=== PATIENT | female | born 1995 | race Caucasian/White ===

== ENCOUNTER 2016-12-16 17:21 | Emergency (ER) | payer OTHER ==
[~2016-12-16] VITALS: Ht 157.5 cm; Wt 44.6 kg
[2016-12-16 17:27] VITALS: TEMP 36.8; Ht 157.5 cm; Wt 44.6 kg
[2016-12-16] MEDS ORDERED: AMOX500C3 PO (17:47)
[2016-12-16] MEDS ORDERED: BUPR8SUB19 SL (17:47)
[2016-12-16 18:21] LABS: BASO % 0.3 %; BASO ABS # 0.03 K/uL (0-0.2); COMPLETE YES; EOS % 0.3 %; HEMATOCRIT 41.5 % (37-47); IG% 0.3 %; LYMPH % 17.3 %; LYMPH ABS # 1.68 K/uL (1.2-3.4); MEAN CELL VOLUME 80.1 fL (80-100); MEAN CORPUSCULAR HEMOGLOBIN 24.9 pg (25-34); MEAN CORPUSCULAR HGB CONC 31.1 g/dl (32-36); MEAN PLATELET VOLUME 9.2 fL (7.4-10.4); MONO % 6.3 %; NEUT % 75.5 %; PLATELET COUNT 344 K/uL (130-400); RED BLOOD COUNT 5.18 M/uL (4.2-5.4); WHITE BLOOD COUNT 9.71 K/uL (4.8-10.8)
--- NOTE | 2016-12-16 18:23 | EMERGENCY ROOM VISIT NOTE ---
History First contact with patient: 17:32 Chief Complaint: ED VAG BLEEDING Stated Complaint: ,BLEEDING,CRAMPING History of Present Illness The patient is a 21 year old female who presents to the Emergency Room accompanied by officers from the correctional facility with complaints of vaginal bleeding and cramping. The patient states that she has had vaginal bleeding and lower abdominal cramping for the past one week. She states that she delivered her son 7 months ago and this is the third time she has had bleeding since then. Her last menstrual period prior to this was 2 months ago. She was seen by a provider at the correctional facility and had a positive test. She has had 2 previous pregnancies, one of which went to term and one of which ended in a miscarriage. She has previously been seen by [facility]/ [facility] in [place]. She rates her overall discomfort a 7/10. Review of Systems A complete 10 point review of systems was reviewed with the patient with pertinent positives and negatives as per history of present illness. All else were negative. Social History Smoking Status: Current Every Day Smoker Alcohol Use: none Drug Use: none Housing Status: other (correctional facility) Occupation Status: other (correctional facility) Current/Historical Medications Scheduled Amoxicillin (Amoxil), 500 MG PO TID Buprenorphine Hcl (Subutex), 0.5 TAB SL TID Physical Exam Vital Signs Date Time Temp Pulse Resp B/P (MAP) Pulse Ox O2 Delivery O2 Flow Rate FiO2 12/16/16 21:00 84 18 115/57 95 Room Air 12/16/16 19:09 63 20 102/56 99 Room Air 12/16/16 17:27 36.8 82 18 113/47 98 Room Air Physical Exam VITALS: Vitals are noted on the nurse's note and reviewed by myself. Vital signs stable. GENERAL: This is a 21-year-old female, in no acute distress, nondiaphoretic, well-developed well-nourished. HEART: Regular rate and rhythm without murmurs gallops or rubs. LUNGS: Clear to auscultation bilaterally without wheezes, rales or rhonchi. ABDOMEN: Positive bowel sounds x 4. Soft, mild tenderness to palpation across lower abdomen. No guarding or rebound tenderness. NEURO: Patient was alert and oriented to person place and time. Medical Decision & Procedures ER Provider Diagnostic Interpretation: TRANSVAGINAL, LIMITED (US) CLINICAL HISTORY: 21 years-old Female presenting with vaginal bleeding, positive test, cramping, last menstrual period 2 months ago. TECHNIQUE: Real-time grayscale and M-mode Doppler ultrasound imaging of the pelvis was performed first using a transabdominal probe and subsequently transvaginal for better characterization. COMPARISON: None. FINDINGS: Uterus: No gestational sac visualized. Anteverted and anteflexed uterus, measuring 8.9 x 3.9 x 5.8 cm. Endometrial cavity is heterogeneous and thickened, measuring 14 mm in maximal AP dimension. Cervix long and closed. Right adnexa: Right ovary normal. Right ovary measures 3.3 x 1.7 x 2.7 cm. Normal color Doppler flow and arterial and venous waveforms within the ovarian parenchyma. Left adnexa: Left ovary likely contains a corpus luteum. Left ovary measures 3.3 x 1.6 x 2.7 cm. Normal color Doppler flow and arterial and venous waveforms within the ovarian parenchyma. Other: No free fluid. IMPRESSION: 1. No gestational sac visualized. Correlate with quantitative beta-hCG for early gestation not yet sonographically visible. This qualifies as of unknown location. Heterogeneous and thickened appearance of the endometrial cavity could suggest a decidual reaction versus blood products in the setting of a failed . Close clinical follow-up recommended with tracking of beta-hCG. 2. No evidence of ovarian torsion. Laboratory Results 12/16/16 18:15 Red Blood Count 5.18, Mean Corpuscular Volume 80.1, Mean Corpuscular Hemoglobin 24.9, Mean Corpuscular Hemoglobin Concent 31.1, Mean Platelet Volume 9.2, Neutrophils (%) (Auto) 75.5, Lymphocytes (%) (Auto) 17.3, Monocytes (%) (Auto) 6.3, Eosinophils (%) (Auto) 0.3, Basophils (%) (Auto) 0.3, Neutrophils # (Auto) 7.33, Lymphocytes # (Auto) 1.68, Monocytes # (Auto) 0.61, Eosinophils # (Auto) 0.03, Basophils # (Auto) 0.03 12/16/16 18:15 Test 12/16/16 18:15 White Blood Count 9.71 K/uL (4.8-10.8) Red Blood Count 5.18 M/uL (4.2-5.4) Hemoglobin 12.9 g/dL (12.0-16.0) Hematocrit 41.5 % (37-47) Mean Corpuscular Volume 80.1 fL (80-100) Mean Corpuscular Hemoglobin 24.9 pg (25-34) Mean Corpuscular Hemoglobin Concent 31.1 g/dl (32-36) Platelet Count 344 K/uL (130-400) Mean Platelet Volume 9.2 fL (7.4-10.4) Neutrophils (%) (Auto) 75.5 % Lymphocytes (%) (Auto) 17.3 % Monocytes (%) (Auto) 6.3 % Eosinophils (%) (Auto) 0.3 % Basophils (%) (Auto) 0.3 % Neutrophils # (Auto) 7.33 K/uL (1.4-6.5) Lymphocytes # (Auto) 1.68 K/uL (1.2-3.4) Monocytes # (Auto) 0.61 K/uL (0.11-0.59) Eosinophils # (Auto) 0.03 K/uL (0-0.5) Basophils # (Auto) 0.03 K/uL (0-0.2) RDW Standard Deviation 45.3 fL (36.4-46.3) RDW Coefficient of Variation 15.6 % (11.5-14.5) Immature Granulocyte % (Auto) 0.3 % Immature Granulocyte # (Auto) 0.03 K/uL (0.00-0.02) Prothrombin Time 12.2 SECONDS (9.0-12.0) Prothromb Time International Ratio 1.1 (0.9-1.1) Activated Partial Thromboplast Time 29.6 SECONDS (21.0-31.0) Partial Thromboplastin Ratio 1.1 Anion Gap 4.0 mmol/L (3-11) Est Creatinine Clear Calc Drug Dose 117.2 ml/min Estimated GFR () > 150.0 Estimated GFR (Non- 134.8 BUN/Creatinine Ratio 15.2 (10-20) Calcium Level 8.8 mg/dl (8.5-10.1) Total Bilirubin 0.4 mg/dl (0.2-1) Aspartate Amino Transf (AST/SGOT) 11 U/L (15-37) Alanine Aminotransferase (ALT/SGPT) 13 U/L (12-78) Alkaline Phosphatase 83 U/L (45-117) Total Protein 7.1 gm/dl (6.4-8.2) Albumin 3.6 gm/dl (3.4-5.0) Globulin 3.5 gm/dl (2.5-4.0) Albumin/Globulin Ratio 1.0 (0.9-2) Thyroid Stimulating Hormone (TSH) 0.231 uIu/ml (0.300-4.500) Human Chorionic Gonadotropin, Quant 609 mIU/mL ED Course The patient was evaluated as above. Labs were drawn and IV access was obtained. Pelvic ultrasound was performed and read by radiology as above. Patient was reevaluated and findings were discussed. Case was discussed with the on-call provider from the [facility]. They will arrange for follow-up in 48 hours. Discharge instructions were reviewed with the patient. The patient verbalized understanding of my assessment and treatment plan and was discharged home in good condition. Medical Decision Differential diagnosis includes spontaneous , early IUP, ectopic , among others. The patient is a 21-year-old female who presents today complaining of vaginal bleeding in the setting of a positive test. Labs revealed no leukocytosis or anemia. Beta hCG was found to be 609. This does seem to be low given the patient's estimated gestational age. Pelvic ultrasound was performed and was inconclusive. Patient's blood type is A+ and she will not require RhoGAM. Case was discussed with the on-call provider for the correctional facility, who will follow-up with the patient for a 48-hour beta hCG. All findings were discussed with the patient. The patient's case was reviewed with Dr. Kruger, ED attending physician, who agreed with my assessment and treatment plan. Based on the patient's presentation and work up, I feel the patient is stable for outpatient treatment. The patient was educated to return to the emergency department for any worsening of their current condition or new/concerning symptoms. She will follow up with her primary care provider at the correctional facility. Medication Reconcilliation Current Medication List: was personally reviewed by me Blood Pressure Screening Patient's blood pressure: Low blood pressure (likely baseline for the patient, as she is very thin) Impression Primary Impression: Threatened miscarriage Departure Information Dispostion Home / Self-Care Condition GOOD Referrals [facility] (PCP) Patient Instructions My [facility] Additional Instructions Follow-up with your primary care provider. You will need a repeat hormone level in about 48 hours. For pain control, you can use the following [id number] medicines (if >12 yo): - Regular strength (325mg/tab) Tylenol (acetaminophen) 2 tabs every 4-6 hours as needed. Do not exceed 12 tablets in a 24 hour period. Avoid taking more than 4 grams (4000 mg) of Tylenol per day. This includes any other sources of acetaminophen you may take on a regular basis. Return for worsening bleeding, lightheadedness, dizziness or any other new/ concerning symptoms.
[2016-12-16 18:30] LABS: INR 1.1 (0.9-1.1); PARTIAL THROMBOPLASTIN RATIO 1.1; PROTHROMBIN TIME (PATIENT) 12.2 SECONDS (9.0-12.0)
[2016-12-16 18:40] LABS: ALT/SGPT 13 U/L (12-78); AST/SGOT 11 U/L (15-37); BLOOD UREA NITROGEN 8 mg/dl (7-18); BUN/CREATININE RATIO 15.2 (10-20); CALCIUM 8.8 mg/dl (8.5-10.1); CARBON DIOXIDE 28 mmol/L (21-32); CHLORIDE 107 mmol/L (98-107); CREATININE 0.53 mg/dl (0.60-1.20); GLUCOSE 85 mg/dl (70-99); POTASSIUM 4.5 mmol/L (3.5-5.1); SODIUM 139 mmol/L (136-145)
[2016-12-16 18:51] LABS: ALKALINE PHOSPHATASE 83 U/L (45-117); THYROID STIMULATING HORMONE 0.231 uIu/ml (0.300-4.500)
--- NOTE | 2016-12-16 18:55 | DIAGNOSTIC IMAGING REPORT ---
TRANSVAGINAL, LIMITED (US) CLINICAL HISTORY: 21 years-old Female presenting with vaginal bleeding, positive test, cramping, last menstrual period 2 months ago. TECHNIQUE: Real-time grayscale and M-mode Doppler ultrasound imaging of the pelvis was performed first using a transabdominal probe and subsequently transvaginal for better characterization. COMPARISON: None. FINDINGS: Uterus: No gestational sac visualized. Anteverted and anteflexed uterus, measuring 8.9 x 3.9 x 5.8 cm. Endometrial cavity is heterogeneous and thickened, measuring 14 mm in maximal AP dimension. Cervix long and closed. Right adnexa: Right ovary normal. Right ovary measures 3.3 x 1.7 x 2.7 cm. Normal color Doppler flow and arterial and venous waveforms within the ovarian parenchyma. Left adnexa: Left ovary likely contains a corpus luteum. Left ovary measures 3.3 x 1.6 x 2.7 cm. Normal color Doppler flow and arterial and venous waveforms within the ovarian parenchyma. Other: No free fluid. IMPRESSION: 1. No gestational sac visualized. Correlate with quantitative beta-hCG for early gestation not yet sonographically visible. This qualifies as of unknown location. Heterogeneous and thickened appearance of the endometrial cavity could suggest a decidual reaction versus blood products in the setting of a failed . Close clinical follow-up recommended with tracking of beta-hCG. 2. No evidence of ovarian torsion. Electronically signed by: Collin Holder M.D. 12/16/2016 6:54 PM Dictated Date/Time: 12/16/2016 6:49 PM
[2016-12-16 21:00] VITALS: BP 115/57; PULSE 84; O2SAT 95
== END 2016-12-16 21:29 | disposition home or self-care (01) ==
LOC: C.EDB 17:23
DX: O20.0 Threatened abortion (principal); O99.331 Smoking (tobacco) complicating pregnancy, first trimester

== ENCOUNTER → 2016-12-28 | Outpatient (CLI) | payer OTHER ==
[~2016-12-28] MED LIST: AMOX500C3 PO; BUPR8SUB19 SL
[2016-12-28 10:18] LABS: HEMATOCRIT 37.6 % (37-47); MEAN CELL VOLUME 81.6 fL (80-100); MEAN CORPUSCULAR HEMOGLOBIN 26.9 pg (25-34); MEAN PLATELET VOLUME 9.5 fL (7.4-10.4); PLATELET COUNT 372 K/uL (130-400); RED BLOOD COUNT 4.61 M/uL (4.2-5.4); WHITE BLOOD COUNT 11.62 K/uL (4.8-10.8)
[2016-12-28 10:42] LABS: ALT/SGPT 27 U/L (12-78); BLOOD UREA NITROGEN 13 mg/dl (7-18); BUN/CREATININE RATIO 19.9 (10-20); CALCIUM 8.9 mg/dl (8.5-10.1); CARBON DIOXIDE 25 mmol/L (21-32); CHLORIDE 108 mmol/L (98-107); CREATININE 0.67 mg/dl (0.60-1.20); GLUCOSE 68 mg/dl (70-99); SODIUM 141 mmol/L (136-145)
[2016-12-28 10:49] LABS: ALKALINE PHOSPHATASE 78 U/L (45-117); AST/SGOT 14 U/L (15-37)
== END | disposition home or self-care (01) ==
LOC: C.LAB 08:57
PROVIDERS: ATTEND Physician Assistant
DX: O03.9 Complete or unspecified spontaneous abortion without complication (principal)